=== PATIENT | female | born 1965 | race Caucasian/White ===

== ENCOUNTER 2016-11-25 17:09 | Inpatient (IN) ==
--- NOTE | 2016-11-25 17:53 | Emergency Department Note ---
Estefany Pepe Brittany, am scribing for, and in the presence of, Umer Little MD 17:46. Sidney Pepe Phillip K, MD, personally performed the services described in this documentation, ascribed by Marina Allison in my presence, and it is both accurate and complete [id number] . Arrival - Arrival Chief Complaint: Non-Specific Stated Complaint: Low sodium levels..was told to come to be admitted ED Nursing Triage Note: pt was seen here last night and had a na level of 122. pt left ama and is back now to be admitted Mode of Arrival: Ambulatory Limitations: No Limitations Source: Patient Time Seen by Provider: 11/25/16 17:30 - History of Present Illness HPI Narrative: This is a 51 y/o white female,who presents to the ED for further evaluation of low sodium levels which started last night. She states last night she was seen here by Dr. Nguyen, she did leave AMA. She states her left leg was starting to tingling and she was experiencing left hip pain. She states she was seen by Dr. Camara, her PCP, and was told her sodium level was 122. She denies any abdominal pain. Pt has no other complaints/pain in the ED at this time. Pt has a PMHx of GERD and thyroid disorder. Pt denies a surgical Hx. Pt denies a family medical Hx. Pt denies the use of tobacco products or street drugs, but drinks alcohol frequently. Patient had a hip x-ray done yesterday that was normal. Patient drug screen was positive for benzodiazepines but was negative for alcohol. Onset (ago): day(s) (Started yesterday) Consistency: constant Severity: moderate Allergies/Adverse Reactions: Allergies Allergy/AdvReac Type Severity Reaction Status Date / Time No Known Allergies Allergy Unverified 06/28/15 06:16 Home Medications: Home Medications Medication Instructions Recorded Confirmed Type Omeprazole [Prilosec] 20 mg PO DAILY 06/28/15 11/25/16 History Vitamins B1,B2,B3,B5,and B6 1 ml IM Q30D 06/28/15 11/25/16 History [B-Complex 100 Injection] ALPRAZolam [Alprazolam] 0.5 mg PO BID 11/25/16 11/25/16 History Levothyroxine Tab [Synthroid Tab] 112 mcg PO QAM 11/25/16 11/25/16 History Review of System - Review of System 12 point system: reviewed and no additional remarkable complaints except as stated - Review of System Review of Systems: Low NA levels Gastrointestinal: Absent: abdominal pain Medical,Surgical,& Family Hx - Medical History Endocrine: History of: Thyroid Disorder (Hypothyroidism) Gastrointestinal: History of: GERD - Social History Smoking Status: Smoker, status unknown Frequency of Alcohol Use: Frequently Type of Drug Use: None Exam Vital Signs: Vital Signs Temperature 98.9 F 11/25/16 17:17 Pulse Rate 103 H 11/25/16 17:17 Respiratory Rate 18 11/25/16 17:17 Blood Pressure 186/135 11/25/16 17:17 O2 Sat by Pulse Oximetry 99 11/25/16 17:17 - General General appearance: alert, in no apparent distress - Head Head exam: Present: atraumatic, normocephalic, normal inspection - Eye Eye exam: Present: normal appearance, PERRL, EOMI. Absent: nystagmus - ENT ENT exam: Present: normal exam, mucous membranes moist - Neck Neck exam: Present: normal inspection, full ROM, trachea midline, tenderness - Chest Chest inspection: Present: normal inspection, symmetric chest wall rise. Absent : tenderness - Respiratory Respiratory exam: Present: normal lung sounds bilaterally. Absent: respiratory distress - Cardiovascular Cardiovascular exam: Present: normal rhythm, tachycardia, normal heart sounds. Absent: murmur, rubs, gallop, clicks, JVD - Abdominal Exam Abdominal exam: Present: soft, normal bowel sounds. Absent: distention, tenderness, guarding, rebound, rigidity - Rectal Exam Rectal exam: Present: deferred - Extremities Exam Extremities exam: Present: normal inspection, full ROM, normal capillary refill. Absent: tenderness, pedal edema, joint swelling, calf tenderness - Back Exam Back exam: Present: normal inspection, full ROM. Absent: tenderness, muscle spasm, rashes - Neurological Exam Neurological exam: Present: alert, oriented X3, CN II-XII intact. Absent: motor sensory deficit - Psychiatric Psychiatric exam: Present: normal affect, normal mood. Absent: depressed, agitated, anxious, flat affect, manic, suicidal ideation - Skin Skin exam: Present: warm, dry, intact, normal color. Absent: rash, cyanosis, diaphoresis, erythema, pallor, mottled Course Course Narrative: Patient discussed with the hospitalist. Patient will need to be placed on water restriction. Results - Labs Lab Results: I have reviewed the patients labs (Labs yesterday showed a sodium of 122 and a chloride of 89. Labs today are pending.) Disposition Clinical Impression: Left hip pain, Hyponatremia Case discussed with: patient Disposition: Still a Patient Condition: Guarded Additional Instructions: Admit to the hospitalist.
[2016-11-25] MEDS ORDERED: SODIUM CHLORIDE 0.9% 1,000 ML IV STA (17:58)
--- NOTE | 2016-11-25 18:26 | EKG Report ---
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
[2016-11-25 18:45] LABS: Albumin 3.8 G/DL (3.4-5.0); Bilirubin,Total 0.8 MG/DL (0.2-1.0); Calcium 8.8 MG/DL (8.5-10.1); Osmolality,Calculated 244.6 MOS/KG (273-304); Total Protein 7.2 G/DL (6.4-8.3)
[2016-11-25] MEDS ORDERED: DOCUSATE SODIUM 100 MG CAPSULE PO PRN (19:40)
[2016-11-25] MEDS ORDERED: ONDANSETRON 4 MG/2 ML VIAL IV PRN (19:40)
--- NOTE | 2016-11-25 19:50 | Hospitalist History & Physical ---
Assessment and Plan (1) Alcohol abuse Status: Acute Current Visit: Yes (2) Hyponatremia Status: Acute Current Visit: Yes (3) Left hip pain Status: Acute Assessment and plan: Plan for this patient 1. Admit patient our service 2. Repeat serum electrolytes in the morning 3. 1 L free water restriction 4. Normal saline at 50 cc/h 5. Check her free T4 TSH urine sodium urine osmole's urine creatinine 6. DT prophylaxis Current Visit: Yes History of Present Illness Chief complaint: Foot pain and hip pain History of present illness: Ms. Martinez is a 51 year old female with past medical history significant for hypothyroidism, reflux, anxiety and low B12. Patient came to our ER yesterday complaining about hip pain and foot and calf pain. She describes the pain in her foot as a tingling sensation. In the workup she was found to be hyponatremic. At that time they wanted to admit her but she refused and went AMA. Today when she was able to take her dog to the vet for boarding she returned back to our hospital. She told the ER physician that she needed to be admitted for her lab abnormality. I was consulted for admission through the emergency room. Repeat labs showed a sodium of 124. Patient does admit to drinking 4-5 beers per day. I suspect this is higher. She is legally intoxicated at this time per lab. Patient is very anxious. Home Medications Medication Instructions Recorded Confirmed Type Omeprazole [Prilosec] 20 mg PO DAILY 06/28/15 11/25/16 History Vitamins B1,B2,B3,B5,and B6 1 ml IM Q30D 06/28/15 11/25/16 History [B-Complex 100 Injection] ALPRAZolam [Alprazolam] 0.5 mg PO BID 11/25/16 11/25/16 History Levothyroxine Tab [Synthroid Tab] 112 mcg PO QAM 11/25/16 11/25/16 History Allergies Allergy/AdvReac Type Severity Reaction Status Date / Time No Known Allergies Allergy Unverified 06/28/15 06:16 Medical,Surgical,& Family Hx - Medical History Endocrine: History of: Thyroid Disorder (Hypothyroidism) Gastrointestinal: History of: GERD - Surgical History HEENT Surgeries: Surgical HX of: Tonsilectomy & Adenoidectomy Reproductive Surgeries: Surgical HX of;: Hysterectomy - Family History Family History: Reports;: Family Cancer - Social History Smoking Status: Smoker, status unknown Frequency of Alcohol Use: Frequently Type of Drug Use: None 12 point system: reviewed and no additional remarkable complaints except as stated Exam - Constitutional Vitals: Period Temp Pulse Resp BP Sys/Mistry Pulse Ox Last 24 Hr 98.9 F 103 17-18 186/135 99 General appearance: normal weight - Head Head exam: Present: normal inspection - Eye Eye exam: Present: EOMI Pupils: Present: JENNIFER - ENT ENT exam: Present: normal exam - Neck Neck exam: Present: normal inspection - Cardiovascular Cardiovascular exam: Present: regular rate and rhythm - GI/Abdominal GI/Abdominal exam: Present: normal bowel sounds - Extremities Exam Extremities exam: Present: normal inspection - Back Exam Back exam: Present: normal inspection - Neurological Exam Neurological exam: Present: alert, oriented X3 - Psychiatric Psychiatric exam: Present: anxious - Skin Skin exam: Present: normal color Results - Labs CBC & BMP: 11/25/16 17:38
[2016-11-25] MEDS ORDERED: SODIUM CHLORIDE 0.9% 1,000 ML IV SCH (20:00)
[2016-11-25] MEDS ORDERED: LORazepam 2 MG/1 ML VIAL IV PRN (20:05)
[2016-11-25] MEDS ORDERED: LABETALOL 20 MG/4 ML SYRINGE IV PRN (20:06)
[2016-11-25] MEDS ORDERED: ALPRAZolam 0.5 MG TABLET PO PRN (20:07)
[2016-11-25] MEDS ORDERED: ALPRAZolam 0.5 MG TABLET PO SCH (21:00)
[2016-11-25 23:55] LABS: Free T4 (Free Thyroxine) 1.17 NG/DL (0.76-1.46); Magnesium 2.3 MG/DL (1.8-2.4); Thyroid Stimulating Hormone 1.21 uIU/ml (0.358-3.74)
[2016-11-26 00:40] LABS: Apearance,Urine Clear (Clear); Bilirubin,Urine Negative (Negative); Blood, Urine NEGATIVE (Negative); Glucose,Urine (UA) Negative (Negative); Ketones,Urine Negative (Negative); Nitrite,Urine Negative (Negative); Protein,Urine Negative; RBC,Urine 1 /HPF (0-4); Squamous Epithelial Cell,Urine Occasional /HPF (0-10); Urine Color Yellow (Yellow); Urine Specific Gravity 1.005 (1.001-1.035)
[2016-11-26 00:44] LABS: Urine Urobilinogen < 2.0 EU/DL (0.2-1.0)
[2016-11-26 06:37] LABS: Basophils % 0.8 % (0.0-0.8); Eosinophils % 0.8 % (0.00-10.9); Hematocrit 33.9 VOL% (35.7-47.0); Immature Granulocytes % 0.2 %; Immature Granulocytes Absolute 0.01 #; Lymphocytes # 2.6 10*3/uL (1.4-4.0); Lymphocytes % 51.4 % (21.3-54.2); Mean Corpuscular HGB Conc 35.4 GM/DL (32-36); Mean Corpuscular Hemoglobin 35 PG (27-34); Mean Corpuscular Volume 98.8 FL (87-102); Monocytes # 0.5 10*3/uL (0.11-0.8); Neutrophils # 1.8 10*3/uL (1.4-7.4); Neutrophils % 36.8 % (38.7-73.9); Red Cell Distribution Width 12.7 % (9.3-17.3)
[2016-11-26 07:09] LABS: Albumin 3.2 G/DL (3.4-5.0); Bilirubin,Total 1.5 MG/DL (0.2-1.0); Calcium 8.6 MG/DL (8.5-10.1); Osmolality,Calculated 261.5 MOS/KG (273-304); Platelet Count 116 T/CUMM (130-400); Potassium 4.9 MMOL/L (3.5-5.1); Red Blood Count 3.43 MC/CUMM (3.8-5.5)
[2016-11-26 07:29] LABS: Eosinophils 1 % (0-10); Lymphocytes 54 % (20-55); Segmented Neutrophils 38 % (50-85); Total Cells Counted 100
[2016-11-26 07:30] LABS: Hypochromasia 1+; Platelet Estimate Decreased
[2016-11-26 08:28] VITALS: BP 126/90
[2016-11-26] MEDS ORDERED: MULTIVITAMIN (CENTRUM) TABLET PO SCH (09:00)
[2016-11-26] MEDS ORDERED: FOLIC ACID 1 MG TABLET PO SCH (09:00)
[2016-11-26] MEDS ORDERED: PANTOPRAZOLE 40 MG TABLET PO SCH (09:00)
[2016-11-26] MEDS ORDERED: THIAMINE 100 MG TABLET PO SCH (09:00)
[2016-11-26] MEDS ORDERED: LEVOTHYROXINE 112 MCG TABLET PO SCH (09:00)
--- NOTE | 2016-11-26 09:55 | Discharge Summary ---
Hospital Course - Hospital Course Hospital Course: Ms. Martinez is a 51-year-old female with history of hypothyroidism alcohol abuse GERD anxiety and B12 deficiency. She came to ER night before with complaint of left hip pain and leg pain associated with tingling. She was noted to have a sodium level of 122 but she refused admission to return again yesterday after she bordered her dog. She had a CT scan of the head which did not show any acute cranial abnormalities. Hip x-ray was without any acute pathology. She had us hemoglobin 12.0 hematocrit 33.9 WBC 5 noted she had hemoglobin 15.6 on she had no hematochezia or melena. She had been hydrated since then. Her sodium was 122 on 11/24/2016 and it improved to 132 this morning her renal function were within normal range. She had a normal TSH level. The hyponatremia is consistent with the volume depletion and alcohol abuse. Patient was started on thiamine folic acid and multivitamin home medication were continued. I offered her to transfer to facility for alcohol detox and rehab but she declined. I have encouraged her to consider getting help. For hip pain she may get [id number] medication she has reported Motrin which she takes occasionally does help but I have asked her to avoid as much possible may take Tylenol as needed. She need to follow-up with the her primary care. The pain in the legs seems like more of her neuropathy possible alcohol related. She need to continue multivitamin thiamine and folic acid and get assistance with the alcohol problem. I will give her gabapentin at bedtime for symptomatic treatment. Patient is discharged but returned if her symptoms recur or worsen especially if she has any melena or bleeding and her hemoglobin was low which I believe more from hydration. She also has thrombocytopenia which is likely due to alcohol use she is also has abnormal LFTs possibly from alcohol use. She need to have follow-up with a primary care and follow on these abnormalities. - Time spent with patient Time with patient DS: Less than 30 minutes Diagnosis - Discharge Diagnosis (1) Neuropathy Status: Acute (2) Alcohol abuse Status: Acute (3) Hyponatremia Status: Acute (4) Left hip pain Status: Acute Discharge Plan - Discharge Data Disposition: Disch To Home/Self Care Condition at Discharge: Stable Discharge Diet: advance to your usual diet Activity: resume usual activities as tolerated - Discharge Medications New Folic Acid Tab 1 mg PO DAILY tablet Gabapentin 300 mg PO BEDTIME #30 capsule Thiamine Tab [Vitamin B1 Tab] 100 mg PO DAILY tablet Continue Omeprazole [Prilosec] 20 mg PO DAILY Vitamins B1,B2,B3,B5,and B6 [B-Complex 100 Injection] 1 ml IM Q30D Levothyroxine Tab [Synthroid Tab] 112 mcg PO QAM ALPRAZolam [Alprazolam] 0.5 mg PO BID - Follow Up or Referral - Forms/Instructions Exam - Constitutional Vitals: Period Temp Pulse Resp BP Sys/Mistry Pulse Ox Last 24 Hr 96.5 F-98.9 F 66-103 14-20 126-187/70-135 94-100 General appearance: no acute distress, over weight - Head Head exam: Present: normal inspection, normocephalic, atraumatic - Eye Eye exam: Present: EOMI. Absent: conjunctival injection, nystagmus Pupils: Present: JENNIFER, normal accommodation - Neck Neck exam: Present: normal inspection, other (Supple) - Respiratory Respiratory exam: Present: clear to auscultation bilaterally. Absent: accessory muscle use, rales, rhonchi - Cardiovascular Cardiovascular exam: Present: regular rate and rhythm. Absent: tachycardia - GI/Abdominal GI/Abdominal exam: Present: normal bowel sounds, soft. Absent: ascites, distended, tenderness - Extremities Exam Extremities exam: Absent: edema - Neurological Exam Neurological exam: Present: alert, oriented X3 - Psychiatric Psychiatric exam: Present: normal affect, normal mood Discharge Results Labs on day of discharge: Labs from last 24 hours 11/26/16 11/26/16 11/26/16 05:58 05:58 00:00 WBC 5.0 RBC 3.43 L D Hgb 12.0 D Hct 33.9 L MCV 98.8 MCH 35 H MCHC 35.4 RDW 12.7 Plt Count 116 L D MPV 11.0 Neut % (Auto) 36.8 L Lymph % (Auto) 51.4 [place] % (Auto) 10.0 Eos % (Auto) 0.8 Baso % (Auto) 0.8 Neut # (Auto) 1.8 Lymph # (Auto) 2.6 [place] # (Auto) 0.5 Eos # (Auto) 0.0 Baso # (Auto) 0.0 Total Counted 100 Immature Gran % 0.2 Nucleated RBC % 0.0 Immature Gran # 0.01 Segmented Neutrophils 38 L Lymphocytes 54 Monocytes 7 Eosinophils 1 Nucleated RBCs # 0.00 Platelet Estimate Decreased Immature Plt Fraction 0.0 Hypochromasia 1+ Morphology Comment Sodium 132 L Potassium 4.9 Chloride 99 Carbon Dioxide 30 Anion Gap 7.9 BUN 7 Creatinine 0.70 GFR Calculation 107 BUN/Creatinine Ratio 10.00 Glucose 97 Serum Osmolality Calculated Osmolality 261.5 L Calcium 8.6 Magnesium Total Bilirubin 1.50 H AST 28 ALT 37 Alkaline Phosphatase 86 Total Protein 6.0 L Albumin 3.2 L Globulin 2.8 Albumin/Globulin Ratio 1.1 Free T4 TSH 3rd Generation Urine Color Yellow Urine Appearance Clear Urine pH 6.0 Ur Specific [place] 1.005 Urine Protein Negative Urine Glucose (UA) Negative Urine Ketones Negative Urine Blood Negative Urine Nitrate Negative Urine Bilirubin Negative Urine Urobilinogen < 2.0 H Urine Leukocytes Negative Urine RBC 1 Ur Squamous Epith Cells Occasional Ur Culture Indicated? Not indicated Urine Osmolality Ur Random Creatinine Ur Random Sodium Serum Alcohol 11/25/16 11/25/16 11/25/16 Unknown 23:13 17:38 WBC RBC Hgb Hct MCV MCH MCHC RDW Plt Count MPV Neut % (Auto) Lymph % (Auto) [place] % (Auto) Eos % (Auto) Baso % (Auto) Neut # (Auto) Lymph # (Auto) [place] # (Auto) Eos # (Auto) Baso # (Auto) Total Counted Immature Gran % Nucleated RBC % Immature Gran # Segmented Neutrophils Lymphocytes Monocytes Eosinophils Nucleated RBCs # Platelet Estimate Immature Plt Fraction Hypochromasia Morphology Comment Sodium Potassium Chloride Carbon Dioxide Anion Gap BUN Creatinine GFR Calculation BUN/Creatinine Ratio Glucose Serum Osmolality 266 L Calculated Osmolality Calcium Magnesium 2.3 Total Bilirubin AST ALT Alkaline Phosphatase Total Protein Albumin Globulin Albumin/Globulin Ratio Free T4 1.17 TSH 3rd Generation 1.210 Urine Color Urine Appearance Urine pH Ur Specific [place] Urine Protein Urine Glucose (UA) Urine Ketones Urine Blood Urine Nitrate Urine Bilirubin Urine Urobilinogen Urine Leukocytes Urine RBC Ur Squamous Epith Cells Ur Culture Indicated? Urine Osmolality 111 Ur Random Creatinine Ur Random Sodium Serum Alcohol 11/25/16 11/25/16 11/25/16 17:38 17:38 17:38 WBC RBC Hgb Hct MCV MCH MCHC RDW Plt Count MPV Neut % (Auto) Lymph % (Auto) [place] % (Auto) Eos % (Auto) Baso % (Auto) Neut # (Auto) Lymph # (Auto) [place] # (Auto) Eos # (Auto) Baso # (Auto) Total Counted Immature Gran % Nucleated RBC % Immature Gran # Segmented Neutrophils Lymphocytes Monocytes Eosinophils Nucleated RBCs # Platelet Estimate Immature Plt Fraction Hypochromasia Morphology Comment Sodium 124 L Potassium 4.0 Chloride 90 L Carbon Dioxide 23 Anion Gap 15.0 BUN 4 L Creatinine 0.70 GFR Calculation 105 BUN/Creatinine Ratio 5.00 L Glucose 78 Serum Osmolality Calculated Osmolality 244.6 L Calcium 8.8 Magnesium Total Bilirubin 0.80 AST 53 H ALT 52 Alkaline Phosphatase 109 Total Protein 7.2 Albumin 3.8 Globulin 3.4 Albumin/Globulin Ratio 1.1 Free T4 TSH 3rd Generation Urine Color Urine Appearance Urine pH Ur Specific [place] Urine Protein Urine Glucose (UA) Urine Ketones Urine Blood Urine Nitrate Urine Bilirubin Urine Urobilinogen Urine Leukocytes Urine RBC Ur Squamous Epith Cells Ur Culture Indicated? Urine Osmolality Ur Random Creatinine 22 Ur Random Sodium 27.0 Serum Alcohol 60 DS: Provider Date of admission: 11/25/16 19:40 Primary care physician: Medina Camara Attending physician on admission: Ralph Cummings MD Discharging clinician: Vishal Price MD
== END 2016-11-26 12:14 | disposition home or self-care (01) | DRG 641 ==
LOC: N.ED 17:09 → N.EDINP 19:40 → SUATTDRO 19:40 → N.2E 20:48
PROVIDERS: ADMIT Internal Medicine; ATTEND Internal Medicine